=== PATIENT | female | born 1990 | race African-American/Black ===

== ENCOUNTER 2017-03-22 23:05 | Emergency (ER) | payer OTHER ==
[2017-03-22 23:29] VITALS: BP 121/70; PULSE 67; TEMP 98.2; BMI 28.3
[2017-03-22 23:40] LABS: URINE APPEARANCE CLEAR; URINE BILIRUBIN NEGATIVE (NEGATIVE); URINE BLOOD NEGATIVE (NEGATIVE); URINE COLOR STRAW; URINE GLUCOSE (UA) NEGATIVE (NEGATIVE); URINE KETONE NEGATIVE (NEGATIVE); URINE LEUK ESTERASE NEGATIVE (NEGATIVE); URINE NITRITE NEGATIVE (NEGATIVE); URINE PROTEIN NEGATIVE (NEGATIVE); URINE UROBILINOGEN NEGATIVE E.U./dl (0.2-1.0)
[2017-03-23 00:17] LABS: MCH 28.1 pg (25.7-33.7); MCHC 33.8 g/dl (32.0-36.0); MEAN CELL VOLUME 83.1 fl (80-96); MEAN PLT VOLUME 8.9 fl (7.5-11.1); PLATELET COUNT 226 K/MM3 (134-434); RDW 14.6 % (11.6-15.6); WHITE BLOOD COUNT 10.9 K/mm3 (4.0-10.0)
--- NOTE | 2017-03-23 00:27 | PDOC ---
*Physical Exam - Vital Signs Last Vital Signs Temp Pulse Resp BP Pulse Ox 98.2 F 67 18 121/70 98 03/22/17 23:26 03/22/17 23:26 03/22/17 23:26 03/22/17 23:26 03/22/17 23:26 ED Treatment Course - LABORATORY CBC & Chemistry Diagram: 03/23/17 00:03 03/23/17 00:03 - ADDITIONAL ORDERS Additional order review: Laboratory Results 03/23/17 03/22/17 00:03 23:30 Sodium Cancelled Potassium Cancelled Chloride Cancelled Carbon Dioxide Cancelled Anion Gap Cancelled BUN Cancelled Creatinine Cancelled Creat Clearance w eGFR Cancelled Random Glucose Cancelled Calcium Cancelled Total Bilirubin Cancelled AST Cancelled ALT Cancelled Alkaline Phosphatase Cancelled Total Protein Cancelled Albumin Cancelled Urine Color Straw Urine Appearance Clear Urine pH 6.0 Ur Specific [place] 1.012 Urine Protein Negative Urine Glucose (UA) Negative Urine Ketones Negative Urine Blood Negative Urine Nitrite Negative Urine Bilirubin Negative Urine Urobilinogen Negative Ur Leukocyte Esterase Negative Urine HCG, Qual Positive 03/23/17 00:03 RBC 5.20 MCV 83.1 MCHC 33.8 RDW 14.6 MPV 8.9 - RADIOLOGY Radiology Studies Ordered: Category Date Time Status TRANSVAGINAL US PREG [US] Stat Ultrasound 03/22/17 23:47 Ordered Medical Decision Making - Medical Decision Making 03/26/17 07:38 26yo (+) test, lower abdominal pain. Denies vaginal bleeding, odor, discharge, pain, dysuria, fever, back pain, or any other complaints at this time. Pt seen by Midlevel Provider under my direct supervision Pt interviewed and examined Ancillary studies reviewed I agree with plan as outlined by Midlevel Provider *DC/Admit/Observation/Transfer Diagnosis at time of Disposition: Lower abdominal pain, , threatened, early Qualifiers: Qualified Code(s): Z3A.01 - Less than 8 weeks gestation of - Discharge Dispostion Disposition: HOME Condition at time of disposition: Stable - Referrals Referrals: Parker Nava MD [Primary Care Provider] - - Patient Instructions Printed Discharge Instructions: DI for -- Discomforts and Remedies, DI for Vaginal Bleeding During Additional Instructions: FOLLOW UP WITH DR. NAVA. CALL TO SCHEDULE YOUR APPOINTMENT. IF SYMPTOM WORSEN OR ANY CONCERNS RETURN FOR FURTHER EVALUATION. TYLENOL ONLY FOR PAIN NEEDED DIRECTED. NO MOTRIN. DRINK PLENTY FLUIDS. Print Language: SINHALA
[2017-03-23 00:44] LABS: ALBUMIN 3.9 g/dl (3.4-5.0); ANION GAP 10 (8-16); BILIRUBIN,TOTAL 0.8 mg/dL (0.2-1.0); CALCIUM 9.5 mg/dL (8.5-10.1); CO2 24 mmol/L (21-32); COCKROFT - GAULT 139.5275; CREATININE 0.7 mg/dL (0.55-1.02); GLUCOSE,RANDOM 91 mg/dL (74-106); SGOT/AST 14 U/L (15-37); SGPT/ALT 20 U/L (12-78); TOT PROT 7.6 g/dl (6.4-8.2)
[2017-03-23 00:47] LABS: ALK PHOS 63 U/L (45-117)
--- NOTE | 2017-03-23 01:56 | PDOC ---
History of Present Illness - General Chief Complaint: Pain, Acute Stated Complaint: ABDOMINAL PAIN Time Seen by Provider: 03/22/17 23:47 History Source: Patient Exam Limitations: No Limitations - History of Present Illness Travel History: No Initial Comments: 03/23/17 01:51 26yo Female patient presents to ED c/o abd cramping and nausea. Patient states she took a home test: positive. Patient describes abd cramping as every 5-10 mins lasting 15 sec. Denies vaginal bleeding, odor, discharge, pain, dysuria, fever, back pain, or any other complaints at this time. Timing/Duration: reports: intermittent Quality: reports: cramping Abdominal Pain Onset Location: reports: periumbilical Pain Radiation: reports: no radiation Activities at Onset: reports: no specific activity Treatment Prior to Arrive: worse with: analgesics, antacids, cold pack, heat, laxative, enema, other Aggravating Factors: worse with: None, Defecation, Eating, Emotional upset, Exertion, [place], Movement, Voiding, Change in position Alleviating Factors: worse with: None, Belching, Shallow Breathing, Defecation, Eating, Holding Breath, Passing Gas, Change in Position, Rest, Voiding, Vomiting Past History - Travel Traveled outside of the country in the last 30 days: No Close contact w/someone who was outside of country & ill: No - Past Medical History Allergies/Adverse Reactions: Allergies Allergy/AdvReac Type Severity Reaction Status Date / Time No Known Allergies Allergy Verified 03/22/17 23:26 Home Medications: Ambulatory Orders No Home Medications 0 dose .ROUTE UTDICT 03/01/14 - Reproductive History Is Patient Now?: Yes (#): 1 Para: 0 Therapeutic (s) & number: No - Immunization History Immunization Up to Date: Yes - Psycho/Social/Smoking Cessation Hx Anxiety: No Suicidal Ideation: No Smoking Status: No Smoking History: Never smoked Have you smoked in the past 12 months: No Number of Cigarettes Smoked Daily: 0 Information on smoking cessation initiated: No Hx Alcohol Use: No Drug/Substance Use Hx: No Substance Use Type: None Abd/GI Specific PMHX - Complaint Specific PMHX Colitis: No Diverticulitis: No Gall Bladder Disease: No GERD: No Hepatitis: No Irritable Bowel Synd (IBS): No Pancreatitis: No GI Ulcer Disease: No Review of Systems - Review of Systems Able to Perform ROS?: Yes Is the patient limited [place] proficient: No Constitutional: No: Chills, Fever Respiratory: No: Cough, Shortness of Breath, Stridor, Wheezing, Hemoptysis Cardiac (ROS): No: Chest Pain, Lightheadedness, Palpitations, Syncope, Chest Tightness ABD/GI: Yes: Nausea, Abdominal cramping. No: Abdominal Distended, Diarrhea, Poor Appetite, Poor Fluid Intake, Rectal Bleeding, Vomiting : No: Burning, Dysuria, Discharge, Frequency, Flank Pain, Hematuria, Pain Musculoskeletal: No: Back Pain Integumentary: No: Erythema, Rash, Sweating Neurological: No: Headache, Seizure, Tremors, Weakness, Dizziness All Other Systems: Reviewed and Negative *Physical Exam - Vital Signs Last Vital Signs Temp Pulse Resp BP Pulse Ox 98.2 F 67 18 121/70 98 03/22/17 23:26 03/22/17 23:26 03/22/17 23:26 03/22/17 23:26 03/22/17 23:26 - Physical Exam General Appearance: Yes: Nourished, Appropriately Dressed. No: Apparent Distress, Mild Distress, Moderate Distress, Severe Distress Neck: positive: Trachea midline, Supple. negative: Decreased range of motion, Stridor, Lymphadenopathy (R), Lymphadenopathy (L) Respiratory/Chest: positive: Lungs Clear, Normal Breath Sounds. negative: Respiratory Distress, Accessory Muscle Use, Labored Respiration, Rapid RR Cardiovascular: positive: Regular Rhythm, Regular Rate. negative: JVD, Murmur Gastrointestinal/Abdominal: positive: Normal Bowel Sounds, Soft. negative: Tender, Distended, Guarding, Rebound, Tenderness Musculoskeletal: positive: Normal Inspection. negative: CVA Tenderness Extremity: positive: Normal Capillary Refill, Normal Inspection, Normal Range of Motion. negative: Swelling, Calf Tenderness, Erythema, Inflammation Integumentary: positive: Normal Color, Dry, Warm. negative: Moist, Hives, Swelling, Bruising Neurologic: positive: lawn care technician II-XII NML intact, Fully Oriented, Alert, Normal Mood/ Affect, Normal Response, Motor Strength 5/5 ED Treatment Course - LABORATORY CBC & Chemistry Diagram: 03/23/17 00:03 03/23/17 00:03 - ADDITIONAL ORDERS Additional order review: Laboratory Results 03/23/17 03/23/17 03/23/17 00:03 00:03 00:03 Sodium Cancelled 140 Potassium Cancelled 4.1 Chloride Cancelled 106 Carbon Dioxide Cancelled 24 Anion Gap Cancelled 10 BUN Cancelled 11 D Creatinine Cancelled 0.7 Creat Clearance w eGFR Cancelled > 60 Random Glucose Cancelled 91 Calcium Cancelled 9.5 Total Bilirubin Cancelled 0.8 D AST Cancelled 14 L D ALT Cancelled 20 D Alkaline Phosphatase Cancelled 63 D Total Protein Cancelled 7.6 Albumin Cancelled 3.9 Beta HCG, Quant 192.0 Urine Color Urine Appearance Urine pH Ur Specific [place] Urine Protein Urine Glucose (UA) Urine Ketones Urine Blood Urine Nitrite Urine Bilirubin Urine Urobilinogen Ur Leukocyte Esterase Urine HCG, Qual Blood Type O POSITIVE Antibody Screen Negative 03/22/17 23:30 Sodium Potassium Chloride Carbon Dioxide Anion Gap BUN Creatinine Creat Clearance w eGFR Random Glucose Calcium Total Bilirubin AST ALT Alkaline Phosphatase Total Protein Albumin Beta HCG, Quant Urine Color Straw Urine Appearance Clear Urine pH 6.0 Ur Specific [place] 1.012 Urine Protein Negative Urine Glucose (UA) Negative Urine Ketones Negative Urine Blood Negative Urine Nitrite Negative Urine Bilirubin Negative Urine Urobilinogen Negative Ur Leukocyte Esterase Negative Urine HCG, Qual Positive Blood Type Antibody Screen 03/23/17 00:03 RBC 5.20 MCV 83.1 MCHC 33.8 RDW 14.6 MPV 8.9 Progress Note - Progress Note Progress Note: 0223: PATIENT STATES SHE DOES NOT WANT TO WAIT FOR ULTRASOUND RESULTS AND WOULD LIKE TO SIGN HERSELF OUT. *DC/Admit/Observation/Transfer Diagnosis at time of Disposition: Lower abdominal pain Qualifiers: Weeks of gestation: less than 8 weeks Qualified Code(s): Z3A.01 - Less than 8 weeks gestation of - Discharge Dispostion Disposition: AGAINST MEDICAL ADVICE Condition at time of disposition: Stable Admit: No - Patient Instructions Printed Discharge Instructions: DI for -- Discomforts and Remedies, DI for Vaginal Bleeding During Additional Instructions: FOLLOW UP WITH DR. NAVA. CALL TO SCHEDULE YOUR APPOINTMENT. IF YOU CHANGE YOUR MIND, RETURN FOR FURTHER EVALUATION. TYLENOL ONLY FOR PAIN NEEDED DIRECTED. NO MOTRIN. DRINK PLENTY FLUIDS. Print Language: K[place]YAR[place]AN[place]
--- NOTE | 2017-03-23 02:41 | PDOC ---
ED Treatment Course - LABORATORY CBC & Chemistry Diagram: 03/23/17 00:03 03/23/17 00:03 - ADDITIONAL ORDERS Additional order review: Laboratory Results 03/23/17 03/23/17 03/23/17 00:03 00:03 00:03 Sodium Cancelled 140 Potassium Cancelled 4.1 Chloride Cancelled 106 Carbon Dioxide Cancelled 24 Anion Gap Cancelled 10 BUN Cancelled 11 D Creatinine Cancelled 0.7 Creat Clearance w eGFR Cancelled > 60 Random Glucose Cancelled 91 Calcium Cancelled 9.5 Total Bilirubin Cancelled 0.8 D AST Cancelled 14 L D ALT Cancelled 20 D Alkaline Phosphatase Cancelled 63 D Total Protein Cancelled 7.6 Albumin Cancelled 3.9 Beta HCG, Quant 192.0 Urine Color Urine Appearance Urine pH Ur Specific [place] Urine Protein Urine Glucose (UA) Urine Ketones Urine Blood Urine Nitrite Urine Bilirubin Urine Urobilinogen Ur Leukocyte Esterase Urine HCG, Qual Blood Type O POSITIVE Antibody Screen Negative 03/22/17 23:30 Sodium Potassium Chloride Carbon Dioxide Anion Gap BUN Creatinine Creat Clearance w eGFR Random Glucose Calcium Total Bilirubin AST ALT Alkaline Phosphatase Total Protein Albumin Beta HCG, Quant Urine Color Straw Urine Appearance Clear Urine pH 6.[address] 1.012 Urine Protein Negative Urine Glucose (UA) Negative Urine Ketones Negative Urine Blood Negative Urine Nitrite Negative Urine Bilirubin Negative Urine Urobilinogen Negative Ur Leukocyte Esterase Negative Urine HCG, Qual Positive Blood Type Antibody Screen 03/23/17 00:03 RBC 5.20 MCV 83.1 MCHC 33.8 RDW 14.6 MPV 8.9 *DC/Admit/Observation/Transfer Diagnosis at time of Disposition: Lower abdominal pain, Threatened in early Qualifiers: Weeks of gestation: less than 8 weeks Qualified Code(s): Z3A.01 - Less than 8 weeks gestation of - Discharge Dispostion Disposition: HOME Condition at time of disposition: Stable - Referrals Referrals: Parker Nava MD [Primary Care Provider] - - Patient Instructions Printed Discharge Instructions: DI for -- Discomforts and Remedies, DI for Vaginal Bleeding During Additional Instructions: FOLLOW UP WITH DR. NAVA. CALL TO SCHEDULE YOUR APPOINTMENT. IF SYMPTOM WORSEN OR ANY CONCERNS RETURN FOR FURTHER EVALUATION. TYLENOL ONLY FOR PAIN NEEDED DIRECTED. NO MOTRIN. DRINK PLENTY FLUIDS. Print Language: CZECH - Post Discharge Activity
== END 2017-03-23 02:50 | disposition home or self-care (01) ==
LOC: JER 23:05
DX: O20.0 Threatened abortion (principal); Z3A.01 Less than 8 weeks gestation of pregnancy
CPT/HCPCS: 36415; 76817-TC; 80053; 81003; 84702; 84703; 85027; 86850; 86900; 86901; 87086; 99282-25